=== PATIENT | male | born 1955 | race Caucasian/White ===

== ENCOUNTER 2017-08-03 08:21 | Day surgery (SDC) | payer OTHER ==
[2017-08-03] MEDS ORDERED: MEPERIDINE HCL/PF 100 MG/ML AMP ONE (09:04)
[2017-08-03] MEDS ORDERED: SIMETHICONE 40 MG/0.6 ML ML ONE (09:05)
[2017-08-03] MEDS: MIDAZOLAM HCL 5 MG/5 ML VIAL ONE ×2 (10:28→10:33)
[2017-08-03 13:35] VITALS: BP_SYST 149
== END 2017-08-03 11:40 | disposition home or self-care (01) ==
LOC: SDS 08:21
PROVIDERS: ATTEND Internal Medicine Gastroenterology
DX: Z09 Encounter for follow-up examination after completed treatment for conditions other than malignant neoplasm (principal); Z86.010 Personal history of colon polyps; D12.0 Benign neoplasm of cecum; D12.3 Benign neoplasm of transverse colon; D12.4 Benign neoplasm of descending colon; E11.9 Type 2 diabetes mellitus without complications; I10 Essential (primary) hypertension; K57.30 Diverticulosis of large intestine without perforation or abscess without bleeding; K64.8 Other hemorrhoids
CPT/HCPCS: 45380; 82962; 88305; J2175; J2250; J7030